=== PATIENT | female | born 1955 | race Caucasian/White ===

== ENCOUNTER 2018-05-22 20:29 | Emergency (ER) | payer OTHER ==
[~2018-05-22] VITALS: Ht 154.9 cm; Wt 70.3 kg
[2018-05-22] MEDS ORDERED: TENORMIN25 MG (20:42)
== END 2018-05-22 22:22 | disposition home or self-care (01) ==
LOC: ER 20:29
DX: S02.2XXA Fracture of nasal bones, initial encounter for closed fracture (principal); S00.211A Abrasion of right eyelid and periocular area, initial encounter; S19.89XA Other specified injuries of other specified part of neck, initial encounter; M54.2 Cervicalgia; M62.838 Other muscle spasm; W01.0XXA Fall on same level from slipping, tripping and stumbling without subsequent striking against object, initial encounter; Y93.01 Activity, walking, marching and hiking; Y92.480 Sidewalk as the place of occurrence of the external cause; Y99.8 Other external cause status